=== PATIENT | male | born 1975 | race Caucasian/White ===

== ENCOUNTER → 2017-10-16 | Day surgery (SDC) | payer BC ==
[~2017-10-16] MED LIST: PROPOFOL 20 ML IV
[2017-10-16] MEDS: IV RINGERS,LACTATED 1000ML 1,000 ML IV (08:47)
== END | disposition home or self-care (01) ==
LOC: SURG 08:12
DX: K64.0 First degree hemorrhoids (principal); K57.30 Diverticulosis of large intestine without perforation or abscess without bleeding; Z87.39 Personal history of other diseases of the musculoskeletal system and connective tissue
CPT/HCPCS: 45378; J2704